=== PATIENT | female | born 1975 | race Caucasian/White ===

== ENCOUNTER 2017-09-11 18:04 | Emergency (ER) | payer OTHER, SELFPAY ==
[2017-09-11 18:05] VITALS: BP 169/106; PULSE 98; RESP 18; TEMP 36.9; O2SAT 100; BMI 32.0
[2017-09-11 19:13] LABS: Absolute Lymphocyte Count 1.74 X10^3/ul (0.83-4.51); Absolute Neutrophil Count 6.4 X10^3/uL (2.0-7.7); Basophil# 0.01 X10^3/uL; Basophil% 0.1 % (0-1); Differential Indicated SCAN CRITERIA MET; Eosinophil# 0.26 X10^3/uL; Eosinophils% 2.9 % (0-5); Hematocrit 23.2 % (37-47); Hemoglobin 6.5 g/dl (12.0-15.0); Lymphocyte # 1.74 X10^3/ul (4.0); Lymphocyte % 19.4 % (19-41); Mean Corpuscular Hgb 21.8 pg (27.0-32.0); Mean Corpuscular Volume 77.9 fL (81-99); Mean Platelet Vol. 10.4 fl (6.2-12.0); Monocyte# 0.57 X10^3/uL; Monocyte% 6.4 % (0-10); Neutrophil # 6.37 X10^3/uL (2.7-7.7); Neutrophil % 71.1 % (47-70); POSITIVE COUNT NO; POSITIVE DIFFERENTIAL NO; POSITIVE MORPHOLOGY YES; Platelet Count 390 K/mm3 (150-450); RBC Distribution Width CV 20.2 % (11.6-14.6); RBC Distribution Width SD 56.7 fl (35.1-43.9); Red Blood Count 2.98 M/mm3 (4.2-5.4)
[2017-09-11 19:37] VITALS: BP 148/93; PULSE 88; RESP 18; O2SAT 96
[2017-09-11 19:37] LABS: Differential Comment SCANNED
--- NOTE | 2017-09-11 19:45 | ED.RN ---
PT EDUCATED AND EXPLAINED ABOUT BLOOD TRANSFUSION. PT DECLINED TO HAVE BLOOD TRANSFUSION DONE. PT IS UNDERSTANDING OF RISKS AND BENEFITS OF BLOOD TRANSFUSION.
--- NOTE | 2017-09-11 19:49 | ED.VISSUMM ---
- ER Visit Summary Date of Service: 09/11/17 Chief Complaint: Low hemoglobin History of Present Illness: The patient is a 42 F who presents with low hemoglobin. It was checked as an outpatient was 6.1. She had heavy periods in July but now her bleeding has stopped. She was feeling fatigued and had some exertional dyspnea. Her OB called and had her come in today. Physical Examination: Vital signs reviewed. HEENT exam unremarkable. Heart is regular rate and rhythm with a 3/6 systolic murmur which is old. Lungs are clear to auscultation. Abdomen is soft and nontender. exam is deferred. Extremities reveal no edema. Skin exam normal. Neurologic exam normal. Test Results: Hemoglobin is 6.5 Emergency Department Course and Treatment: I initially ordered 1 unit of packed red blood cells. I spoke with Dr. Cameron on-call for Dr. Holland. They will follow-up with the patient tomorrow. The patient then declined to have the blood transfusion. I informed her the risks and benefits of this. She would rather take iron at home and I feel that this is reasonable. She has normal vitals and is not bleeding at this time. She will follow-up with her OB Treatment Plan: [] Disposition: Discharge Impression: Acute blood loss anemia This note was generated with [employer] dictation software. It may contain incorrect words, spelling, and punctuation that were not noted in review of the chart prior to signing ED Disposition - Plan for ED Patient: Chief Complaint: Abn Labs Referrals: Roma Sabillon MD [Primary Care Provider] -
--- NOTE | 2017-09-11 19:51 | ED.DEP ---
ED Disposition - Plan for ED Patient: Disposition: Home or Assisted Living Chief Complaint: Abn Labs Instructions: ED Anemia Type Not Specified Referrals: Roma Sabillon MD [Primary Care Provider] -
== END 2017-09-11 19:59 | disposition home or self-care (01) ==
PROVIDERS: Emergency Provider Emergency Medicine; Family Provider Internal Medicine; PCP Internal Medicine
DX: D62 Acute posthemorrhagic anemia (principal)
CPT/HCPCS: 85025; 86850; 86900; 86920; 99283

== ENCOUNTER 2017-09-19 12:53 | Day surgery (SDC) | payer OTHER, SELFPAY ==
[2017-09-18 10:40] LABS: Hematocrit 29.2 % (37-47); Hemoglobin 8.1 g/dl (12.0-15.0); Mean Corp Hgb Conc 27.7 g/gl (32-36); Mean Corpuscular Hgb 22.5 pg (27.0-32.0); Mean Corpuscular Volume 81.1 fL (81-99); Mean Platelet Vol. 11.7 fl (6.2-12.0); Platelet Count 360 K/mm3 (150-450); RBC Distribution Width CV 22.6 % (11.6-14.6); RBC Distribution Width SD 63.8 fl (35.1-43.9); White Blood Count 5.8 K/mm3 (4.4-11.0)
[2017-09-18 10:41] LABS: Scan Indicated on CBC? Y/N YES- FLAGS NOTED
[2017-09-19] VITALS (7 sets, daily range): BP systolic 112–134; BP diastolic 53–76; PULSE 75–87; RESP 16–18; TEMP 36.5–37.3; O2SAT 98–100; BMI 31.4
[2017-09-19 13:21] LABS: Internal QC Validated? YES +Cl - CLEAR BKGD; Pregnancy, Urine Negative Negative
[2017-09-19 13:27] LABS: Hematocrit 29.8 % (37-47); Hemoglobin 8.3 g/dl (12.0-15.0); Mean Corp Hgb Conc 27.9 g/gl (32-36); Mean Corpuscular Hgb 22.4 pg (27.0-32.0); Mean Corpuscular Volume 80.5 fL (81-99); Mean Platelet Vol. 10.1 fl (6.2-12.0); Platelet Count 367 K/mm3 (150-450); RBC Distribution Width CV 23.1 % (11.6-14.6); RBC Distribution Width SD 64.6 fl (35.1-43.9); White Blood Count 6.9 K/mm3 (4.4-11.0)
[2017-09-19 13:29] LABS: Scan Indicated on CBC? Y/N YES- FLAGS NOTED
[2017-09-19] MEDS: Acetaminophen 500 MG Tablet 1000 MG PO (13:31)
[2017-09-19] MEDS: Ketorolac 60 MG/2 ML Vial IM (14:04)
--- NOTE | 2017-09-19 15:20 | EMB_PTH ---
PATIENT: LEYDI OCHOA LOC: [facility] [place] U#:[id number] AGE/SX: 42/F ROOM: RE09/19/[address]: Dr. Prema Holland MD : 1975 BED: DIS: 09/19/2017 SPEC #: [id number] RECD: 09/20/17 09:08 STATUS: EFRAIN GAMBOALissy #: [id number] MAKEDA: 09/19/17 15:[address]: Prema Holland DEPT: SURGICAL PATHOLOGY RECD BY: Rafa Crews ENTERED: 09/20/17 11:14 SP TYPE: ENDOM BX/C ISAÍAS DR: Dr. Roma Sabillon MD Tissues: Endometrium, NOS Procedures: Surgery Specimen Level IV HEADER OPERATION: Hysteroscopy, visual D & C, Mirena IUD insertion PRE-OP DIAGNOSIS: Endometrial polyp, menorrhagia TISSUE SUBMITTED: Endometrial polyp MICROSCOPIC DIAGNOSIS Endometrial polyp: Secretory endometrium. Fragments of myometrium. SJ:dylan 09/23/17 MICROSCOPIC DESCRIPTION Slides are reviewed. GROSS DESCRIPTION Received in fixative is one container labeled with the patient's name and designated endometrial curettings. The specimen consists of multiple irregular fragments of briceño soft tissue that in aggregate measure 7.5 x 3 x 0.3 cm. The entire specimen is submitted in three cassettes. / MAUDE:dylan 09/20/17 TC:4 CPT: 01296
--- NOTE | 2017-09-19 16:06 | PCM.OPRPT ---
Report of Operation Date of Procedure: 09/19/17 Pre-Operative Diagnosis: menorrhagia, acute blood loss anemia, endometrial polyp Post-Operative Diagnosis: same Surgery/Procedure Performed:: hysteroscopy with visual dilation and curettage and polyp resection and Mirena insertion Description of Surgical Findings:: polypoid appearing material at uterine fundus, lush endometrium medical education coordinator: None Type of Anesthesia:: MAC/Supplemental/Local Anesthesiologist: Dorinda Velazquez Special Medications: none Specimen's removed: enodometrial curettings Drains: none Estimated Blood Loss (mL): 20cc Fluids Replaced: LR Description of Procedure: The patient was taken to the OR where she was prepped and draped in dorsal lithotomy position. The weighted speculum was placed in the vagina and the anterior lip of the cervix was grasped with a single-tooth tenaculum. A paracervical block was administered with [1% lidocaine with 1-100,000 epinephrine solution]. The cervix was dilated serially with Hegar dilators. The 6 mm Symphion hysteroscope was placed into the uterine cavity and the above findings were noted. Bilateral tubal ostia [were] identified. The hysteroscope was removed. The Symphion device was readied and inserted. The polypoid material in the anterior uterine fundus was removed with direct visualization. The device was then used to perform a visual D&C of the remainder of the endometrial cavity. The Mirena intrauterine device was inserted in the usual fashion and the strings were to 2 cm. The instruments were removed from the vagina. The tenaculum site was hemostatic. The vaginal sweep was completed. The specimen was retrieved from the suction canister and sent to pathology. All sponge and needle counts were correct. Vaginal sweep was performed by me. The patient was awakened and taken to the recovery room in stable condition. Hysteroscopic ins: 1000 cc cc normal saline Hysteroscopic outs: 500 cc cc Fluid deficit is 500 cc of normal saline. Grafts/Implants Used: none - Complications none - Admit VTE Documentation VTE Present on Admission: No VTE Pharm Prophylaxis ordered?: No
--- NOTE | 2017-09-19 16:21 | PCM.DC.D&C ---
Discharge Diet: No Restrictions Discharge Activity: Return to Normal Activity, May Shower, May Take a Tub Bath - in 2 weeks. May resume sexual activity in: 2 weeks Call your doctor if you observe: Fever of 101 or Higher, Using more than one pad per hour - for 2 hrs in a row, Uncontrolled pain Allergies/Adverse Reactions: Allergies No Known Allergies Allergy (Verified 09/18/17 08:14) Medications to take at Discharge Ferrous Sulfate [Iron] 325 mg PO DAILY 09/11/17 Mv-Min/Iron/Folic/Calcium/Vitk [Women's Daily Formula Tablet] 1 each PO DAILY 09/18/17 Primary Care Physician: Roma Sabillon MD [Primary Care Provider] - Test Results: Test results from this visit will be discussed in further detail at your follow-up appointment, if applicable. Please Follow Up With: Prema Holland MD - [phone]
== END 2017-09-19 17:22 | disposition home or self-care (01) ==
LOC: SDC 12:54 → AC 12:54
PROVIDERS: Family Provider Internal Medicine; PCP Internal Medicine; Visit Provider Obstetrics & Gynecology
PROC: 0UDB8ZZ Extraction of Endometrium, Via Natural or Artificial Opening Endoscopic (ICD-10-PCS; CPT 58558; principal; 2017-09-19 15:00)
DX: N84.0 Polyp of corpus uteri (principal); D62 Acute posthemorrhagic anemia; N92.0 Excessive and frequent menstruation with regular cycle; I10 Essential (primary) hypertension; Z79.899 Other long term (current) drug therapy
CPT/HCPCS: 58300; 58558; 36415; 81025; 85027; 86850; 86900; 88305; J7120; J2405

== ENCOUNTER 2018-07-31 08:35 | Day surgery (SDC) | payer OTHER, SELFPAY ==
--- NOTE | 2018-07-22 10:27 | HP.PCM_ITS ---
History and Physical Date of Admission: 07/31/18 Pre-Op History and Physical ? HPI: The patient is a 43 year old female presenting for pre-operative visit. She is scheduled for?LAVH, bilateral salpingectomy, for?uterine fibroids, fe def. anemia from chronic blood loss and menorrhagia on?07/31/18. ??Procedure discussed along with risks, benefits and complications. ?Other alternatives discussed for management. Consent form signed??Yes.? PAST?MEDICAL?HISTORY PAST MEDICAL HISTORY Diagnosis Date ? Ear problem, right ? ? ? HTN (hypertension) ? ? age 22 ? Pre-eclampsia ? ? Ivy ? ? PAST?SURGICAL?HISTORY PAST SURGICAL HISTORY Procedure Laterality Date ? EAR TUBES HX ? ? ? EXTRACTION ERUPTED TOOTH/EXR ? ? ? HYSTEROSCOPY, SURGICAL; WITH SAMPLI ? 09/19/2017 ? resection of polyps, D&C ? ? CURRENT?MEDICATIONS Current Outpatient Medications Medication Sig Dispense Refill ? tranexamic acid (LYSTEDA) 650 mg tablet Take 2 tablets by mouth three times daily as needed (heavy menstrual bleeding) for up to 5 days. 30 tablet 5 ? multivit with calcium,iron,min (WOMEN'S DAILY MULTIVITAMIN ORAL) Take by mouth. ? ? ? ferrous sulfate 325 mg (65 mg iron) tablet DAILY ? ? ? levonorgestrel (MIRENA) 20 mcg/24 hr (5 years) IUD 1 Each by INTRAUTERINE route as directed. (Patient not taking: Reported on 02/12/2018 ) ? ? ? No current facility-administered medications for this visit.? ? ALLERGIES:?Patient has no known allergies. ? PERSONAL HISTORY:? SOCIAL?HISTORY Social History ??Socioeconomic History ?Marital status: ?Spouse name: Not on file ?Number of children: Not on file ?Years of education: Not on file ?Highest education level: Not on file ??Social Needs ?Financial resource strain: Not on file ?Food insecurity - worry: Not on file ?Food insecurity - inability: Not on file ?Transportation needs - medical: Not on file ?Transportation needs - non-medical: Not on file ??Occupational History ?Occupation: teacher ?Comment: [employer] ?Occupation: teacher ?Employer: [employer] ??Tobacco Use ?Smoking status: Never Smoker ?Smokeless tobacco: Never Used ??Substance and Sexual Activity ?Alcohol use: No ?Drug use: No ?Sexual activity: Not Currently ??Other Topics ?Concerns: ?Not on file ??Social History Narrative ?Children- 3: 16, 14 and 13. ?Lost one in childbirth ? FAMILY HISTORY:? FAMILY?HISTORY FAMILY HISTORY Problem Relation Age of Onset ? Hypertension Mother ? ? Hypertension Maternal Grandmother ? ? Heart disease Maternal Grandmother ? ? Hypertension Paternal Grandmother ? ? Heart Failure Paternal Grandmother ? ? other (seizure disorder) Son ? ? REVIEW OF SYMPTOMS: GENERAL: denies fevers or chills ENDOCRINOLOGY: has not been on steroids Cardiology : denies palpitations or chest pain Respiratory: denies SOB or cough Hematology: denies history of prolonged bleeding or easy bruising or VTE Allergy: Denies history of personal or family history of allergy to anesthesia ? ? PHYSICAL EXAMINATION: ? VITALS:?Blood pressure 108/68, pulse 64, resp. rate 14, height 5' 8 (1.727 m), weight 213 lb (96.6 kg), last menstrual period 07/02/2018. ? GENERAL:??The patient is well nourished, well hydrated in no acute distress. ?, The patient is oriented to time, place, and person. NECK:?Supple. No lynphadenopathy, normal thyroid, no thyromegaly. LUNGS:?Clear to auscultation bilaterally. no wheezes, rhonchi or rales HEART:?Regular rate and rhythm, Normal heart sounds and No murmurs or gallops ? EMB 09/05/15 -benign endometrium with stromal breakdown ? Pelvic US 08/22/17: Report Summary: Overall impression: An enlarged and anteverted uterus with the measurements shown below. The endometrial echo measures 26 mm. The endometrial cavity shows an endometrial polyp. Multiple intramural fibroids are visualized The right ovary appears normal. The left ovary appears normal A left paraovarian cyst is notes. There is no free fluid in the cul de sac IMPRESSION: An enlarged uterus Multiple fibroids An endometrial polyp A paraovarian cyst. Recommendations / therapy: Clinical correlation. Indication: Abnormal Uterine Bleeding. History: Last menstrual period: 08/02/2017. 21th day of cycle. Gynecological Ultrasonography: Uterus: normal, anteverted. Size: Longitudinal 103 mm. Anterio- posterior 61 mm. Transverse?75 mm. Volume: 246.7 ml. Fibroids: Fibroid 1: Size: 45 mm x 36 mm x 39 mm. Type: anterior. Position: right lower uterine segment. Lateral. Fibroid 2: Size: 25 mm x 19 mm x 27 mm. Type: posterior. Position: mid-uterus. Fibroid 3: Size: 18 mm x 12 mm x 23 mm. Type: posterior. Position: mid-uterus. Endometrium: endometrium clearly visualized. Endometrium thickness total: 26.0 mm. Endometrial polyps: 27 mm x 14 mm x 22 mm. Right Ovary: normal. Visible. Morphology: normal morphology. Right Ovary size: 29 mm x 30 mm x 26 mm. Volume: 11.8 ml. Left Ovary: normal. Visible. Morphology: normal morphology. Left Ovary size: 29 mm x 21 mm x 17 mm. Volume: 5.4 ml. Comments: Paraovarian cysts- [id number] and [id number] Cul de Sac / Pouch of Agustin: no free fluid visible.? ? IMPRESSION:?Menorrhagia, intramural uterine fibroids, iron deficiency anemia due to chronic blood loss ? PLAN:???The risks/benefits/alternatives and personal involved for the planned?LAVH, bilateral salpingectomy, possible cystoscopy?were reviewed with the patient. Her questions were answered to her satisfaction and she desires to proceed. ?Consent was signed. ?I reviewed with her postop instructions and expectations. ?She would like to consider same day discharge home and requirements for this reviewed.? I have reviewed and updated past medical and surgical history, medications and allergies? this history and physical was completed in my office on 07/22/2018
[2018-07-31] VITALS (9 sets, daily range): BP systolic 96–141; BP diastolic 55–79; PULSE 66–92; RESP 18; TEMP 36.7–36.9; O2SAT 94–99; BMI 32.5
[2018-07-31 09:02] LABS: Internal QC Validated? YES +Cl - CLEAR BKGD
[2018-07-31 09:03] LABS: Pregnancy, Urine Negative Negative
[2018-07-31] MEDS: Lactated Ringers 1,000 ML 40 ML IV (09:22)
[2018-07-31] MEDS: Magnesium Sulfate 4gm/100mL 4 GM/100 ML IV.SOLN. IV (09:23)
[2018-07-31] MEDS: dexAMETHasone 10 MG/ML Vial 8 MG IV (09:24)
[2018-07-31] MEDS: Scopolamine 1mg/72hr Patch 1 PATCH TRANSDERM. (09:31)
[2018-07-31] MEDS: Acetaminophen 500 MG Tablet 1000 MG PO ×2 (09:34→17:10)
[2018-07-31] MEDS: Gabapentin 600 MG Tablet PO (09:34)
[2018-07-31] MEDS: Celecoxib 200 MG Capsule 400 MG PO (09:35)
[2018-07-31] MEDS: Phenazopyridine 95 MG Tablet 190 MG PO (09:36)
[2018-07-31 09:50] LABS: Bedside Glucose 106 mg/dL (70-110)
--- NOTE | 2018-07-31 10:00 | HYST_PTH ---
PATIENT: LEYDI OCHOA LOC: [facility] [place] U#:[id number] AGE/SX: 43/F ROOM: RE07/31/[address]: Dr. Prema Holland MD : 1975 BED: DIS: 07/31/2018 SPEC #: [id number] RECD: 07/31/18 16:07 STATUS: EFRAIN ARMANDO #: [id number] MAKEDA: 07/31/18 10:[address]: Prema Holland DEPT: SURGICAL PATHOLOGY RECD BY: Julio Reveles ENTERED: 08/01/18 08:57 SP TYPE: HYSTERECT OTHR DR: Dr. Roma Sabillon MD Tissues: Uterus, NOS Procedures: Surgery Specimen Level V HEADER OPERATION: ERAS, hysterectomy, lap-assisted vaginal, salpingectomy, cysto PRE-OP DIAGNOSIS: Menorrhagia, intramural uterine fibroids TISSUE SUBMITTED: Uterus, cervix, bilateral fallopian tubes MICROSCOPIC DIAGNOSIS Uterus, hysterectomy: Cervix - squamous metaplasia, nabothian cysts and mild chronic inflammation. Endometrium - transition endometrium. Myometrium - leiomyomas. Right fallopian tube - no pathologic change. Left fallopian tube with cystic dilatation - consistent with hydrosalpinx. AM:dylan 08/04/18 COMMENT Case has been reviewed in consultation with Dr. Byrd who concurs with the above diagnosis. IDC:SJ MICROSCOPIC DESCRIPTION Slides are reviewed. GROSS DESCRIPTION Received in fixative is one container labeled with the patient's name and designated uterus. The specimen consists of a uterus with attached cervix, attached right and left fallopian tubes. The uterus with cervix measures 10.5 x 10 x 5 cm and weighs 222 gm. The ectocervix is unremarkable. The cervical os is oval in contour. The endocervical canal measures 3.6 cm in length and is grossly unremarkable. The triangular endometrial cavity measures 3.8 x 3 cm. The velvety, reddish-briceño endometrium measures up to 0.2 cm in thickness. The myometrium measures 2 cm in average thickness and contains multiple rubbery nodules ranging in size from 0.7 to 4 cm in greatest dimension. The largest nodule has extensive calcific change. The right fallopian tube measures 6.6 cm in length and 0.8 cm in average diameter. The left fallopian tube measures 9 cm in length and varies in diameter from 0.5 cm to 4.0 cm. A smooth cyst measuring 9 x 4 x 2.5 cm is present and appears to be part of the left fallopian tube containing clear fluid. The external surface is smooth and without papillations. The external surface is inked. The external surface of the left fallopian tube is inked and the area of dilation contains clear watery, light briceño fluid consistent with hydrosalpinx. News Videotape Editor sections are submitted in 12 cassettes as follows: 1 - anterior cervix, 2 - posterior cervix, 3 & 4 - anterior uterine wall, 5 & 6 - posterior uterine wall, 79 - leiomyomas, 10 - right fallopian tube, 11 & 12 - left fallopian tube and cyst. / AM:dylan 08/01/18 TC:1 CPT: 47740
[2018-07-31] MEDS: Cefazolin 2 GM in 0.9% Normal Saline 100 ML IV (12:12)
[2018-07-31] MEDS: Bupivacaine Mpf 0.5% 30 ML VIAL (14:33)
--- NOTE | 2018-07-31 15:05 | OP.PCM_ITS ---
Report of Operation Date of Procedure: 07/31/18 Pre-Operative Diagnosis: Menorrhagia, history of chronic iron deficiency anemia from blood loss, intramural uterine fibroids Post-Operative Diagnosis: same Surgery/Procedure Performed:: Laparoscopic assisted vaginal hysterectomy with bilateral salpingectomy and cystoscopy Description of Surgical Findings:: Enlarged uterus. Multiple fibroids. One fibroid on the right internal cervical os level. Another fibroid in the uterine fundus. Large left paratubal cyst. Otherwise normal-appearing tubes and ovaries. No other significant intraperitoneal abnormalities loan inspector: Sera Carrillo loan inspector: Graciela Gill Type of Anesthesia:: General Anesthesiologist: Marisa Maki Special Medications: none Specimen's removed: Uterus, Cervix, bilateral tubes Drains: Buck removed in PACU Estimated Blood Loss (mL): 250 Fluids Replaced: 1200 cc LR Description of Procedure: The patient was taken to the operating room where she was prepped and draped in the dorsal lithotomy position. Her arms were tucked to the side and padded and her legs were placed in the yellowfin stirrups. Care was taken to ensure that she was placed in a neurologically safe and neutral position. A weighted speculum was placed in the vagina and the anterior lip of the cervix was grasped with a single-tooth tenaculum. The uterus sounded to 10 centimeters. The ZUMI uterine manipulator was placed and secured. The Buck catheter was placed to straight drain. Attention was turned to the abdominal portion of the case. Before skin incisions were made they were infiltrated with 0.5% Marcaine solution for local anesthetic. A 5 mm intraumbilical incision was made and while tenting the anterior abdominal wall up with towel clamps a 5 mm blade less trocar and sleeve were advanced directly into the peritoneal cavity. Peritoneal placement was confirmed with the laparoscope the pneumoperitoneum was created, and the underlying abdominal contents were intact. The patient was placed in Trendelenburg and the above findings were noted. Right and left lateral 5 mm trochars were placed under direct visualization without difficulty. The antimesenteric portion of the tube was clamped sealed and transected serially on both sides with the LigaSure device. The round ligaments were clamped sealed and transected and a window was made in the peritoneum. The utero-ovarian ligaments were then clamped, sealed and transected with the LigaSure device and the pedicles were hemostatic. The fibroid on the right distorted the anatomy slightly and we had to work around this and take the peritoneum off of it and then manipulated to be able to get the bladder flap down and access the uterine vessels. The bladder flap was dissected down with the LigaSure device and blunt dissection and the uterine arteries were then skeletonized. The uterine arteries were clamped, sealed and transected on both sides with the LigaSure device. At this point the pedicles were all examined and found to be hemostatic. Attention was turned to the vaginal portion of the case. 1% lidocaine with dilute epinephrine solution was used to infiltrate the anterior vaginal epithelium over the cervix. An incision was made from 3 to 9:00 across the anterior vaginal epithelium and the vaginal epithelium was dissected back with blunt sharp dissection. The anterior colpotomy incision was made. The posterior colpotomy incision was made with sharp dissection. The uterosacral ligaments were then clamped, transected and suture-ligated on both sides. Hemostasis was noted. The lower portion of the cardinal ligaments was then clamped, transected and suture-ligated. On the left side there is just a small amount of peritoneum that was left and this was clamped across, transected and suture-ligated. The uterus was then brought out through the vaginal incision and there was a small amount of peritoneum left on the patient's right side near where the fibroid was and this was clamped, transected and suture- ligated. The pedicles were all then examined and found to be hemostatic. A modified Salmeron suture was done with 2-0 PDS suture. This was performed after the posterior vaginal cuff was run with a 2-0 Vicryl suture to secure the peritoneum to the posterior vaginal cuff. The modified Salmeron suture was reefed across the posterior peritoneum through both uterosacral ligaments and then back out through the midline to be secured after the vaginal cuff was closed. The vaginal cuff was then closed in a horizontal fashion with interrupted 0 Vicryl [id number] sutures. Care was taken to secure the vagina to the uterosacral ligaments. Call suture was then cinched down. The Buck catheter was removed and a cystoscopy was performed. The bladder appeared normal and was intact. Both ureteral orifices were noted and both ureteral jets were seen. The cystoscope was removed and the Buck catheter was placed back to straight drain. A sponge stick was placed in the vagina to help place traction against the vaginal cuff. The laparoscope was reinserted into the abdomen and the pneumoperitoneum was re- created. The pedicles were reexamined and found to be hemostatic. The vaginal cuff was hemostatic. The right and left lateral ports were taken out and the sites were hemostatic. The pneumoperitoneum was released and even under low pressure there was no bleeding of any of the pedicles are vaginal cuff. The umbilical port was removed. The umbilical skin incisions were closed with Monocryl suture and skin glue by an FNA with me present in the operative suite. The vaginal instruments were removed by me and a vaginal sweep was completed by me. A rectal exam was performed and no sutures were palpated. The surgery was performed by me with assistance other than the portions dictated as above. There were no qualified residents available for this procedure. All sponge lap and needle counts were correct and the patient was transferred to the recovery room in stable condition. Grafts/Implants Used: None - Complications None - Admit VTE Documentation VTE Present on Admission: No VTE Mechan Device Prophylaxis: SCD's VTE Pharm Prophylaxis ordered?: No Reason prophylaxis not ordered:: Procedure Not Indicated
[2018-07-31] MEDS: Ketorolac 30 MG/ML Syringe IV (15:20)
[2018-07-31] MEDS: Ondansetron 4 MG/2 ML Vial IV (15:21)
--- NOTE | 2018-07-31 15:21 | DCINST_ITS ---
Discharge Diet: No Restrictions Discharge Activity: Return to Normal Activity, May Not Drive - while taking narcotic pain medications., May Shower, May Take a Tub Bath - in 4 weeks, no swimming or hot tubs for 6 weeks May shower in (days): 1 May resume sexual activity in: 6-8 weeks Lifting Restrictions: 15 lbs Call your doctor if your incision/area has: Continuous Slow Oozing, Sudden Increased Bleeding, Increased Pain/ Swelling, Increased Redness, Foul Smelling Discharge Call your doctor if you observe: Fever of 101 or Higher, Inability to urinate, Inability to have a bowel movement, Using more than one pad per hour Cleanse incision/area with: Soap & Water - your skin glue can get wet, wash with soap and water Allergies/Adverse Reactions: Allergies No Known Allergies Allergy (Verified 07/31/18 09:12) Medications to take at Discharge Mv-Min/Iron/Folic/Calcium/Vitk [Women's Daily Formula Tablet] 1 each PO DAILY 09/18/17 Docusate Sodium [Colace] 100 mg PO BID PRN PRN #20 capsule 07/31/18 Ibuprofen [Motrin] 800 mg PO TID PRN PRN #40 tablet 07/31/18 Ketorolac [Toradol] 10 mg PO Q6H 3 Days #12 tablet 07/31/18 Oxycodone [Oxyir] 5 mg PO Q6H PRN PRN 4 Days #10 tablet 07/31/18 The following prescriptions were given: Oxycodone [Oxyir] 5 mg PO Q6H PRN PRN 4 Days #10 tablet PRN Reason: Breakthrough Pain (>4/10) Docusate Sodium [Colace] 100 mg PO BID PRN PRN #20 capsule PRN Reason: Constipation Ibuprofen [Motrin] 800 mg PO TID PRN PRN #40 tablet PRN Reason: Pain Ketorolac [Toradol] 10 mg PO Q6H 3 Days #12 tablet Primary Care Physician: Roma Sabillon MD [Primary Care Provider] - Test Results: Test results from this visit will be discussed in further detail at your follow- up appointment, if applicable. Please Follow Up With: Prema Holland MD - [phone] When: 1-2 and 6 weeks or as needed
[2018-07-31 17:26] LABS: Hematocrit 37.1 % (37-47); Hemoglobin 11.7 g/dl (12.0-15.0); Mean Corp Hgb Conc 31.5 g/gl (32-36); Mean Corpuscular Hgb 28.5 pg (27.0-32.0); Mean Corpuscular Volume 90.5 fL (81-99); Mean Platelet Vol. 11.1 fl (6.2-12.0); Platelet Count 318 K/mm3 (150-450); RBC Distribution Width CV 14.2 % (11.6-14.6); White Blood Count 16.8 K/mm3 (4.4-11.0)
[2018-07-31 17:28] LABS: Scan Indicated on CBC? Y/N NO
--- NOTE | 2018-07-31 19:03 | PCM.PN.OB ---
Subjective: pain well controlled. Minimal vaginal bleeding. Not much of an appetite but drinking fluids and had some crackers. Hasn't voided, attempted and failed. Lightheaded a little w/ ambulation - Physical Exam General: Alert, Cooperative, No apparent distress Abdomen: Soft, Non-Distended, Tender - appropriately Skin: Incision - clean, dry and intact w/ skin glue Vital Signs Temp Pulse Resp BP Pulse Ox 98.5 F 80 18 109/57 L 96 07/31/18 18:55 07/31/18 18:55 07/31/18 18:55 07/31/18 18:55 07/31/18 18:55 Oxygen Flow Rate (L/min) 6 Oxygen Delivery Method Room Air Weight: 97.1 kg Body Mass Index (BMI) 32.5 Intake and Output for Last 24 Hours 07/29/18 07/30/18 07/31/18 23:59 23:59 23:59 Intake Total 1400 / 1400 Output Total 300 / 300 Balance 1100 / 1100 Laboratory Tests Past 24 Hrs 07/31/18 07/31/18 07/31/18 08:51 09:04 17:10 WBC 16.8 H RBC 4.10 L Hgb 11.7 L Hct 37.1 MCV 90.5 MCH 28.5 MCHC 31.5 L RDW 14.2 RDW Differential 47.0 H Plt Count 318 MPV 11.1 Urine Test Negative Blood Type O POSITIVE Antibody Screen NEGATIVE POC Glucose 07/31/18 09:17 POC Glucose 106 Medical Necessity - Tobacco Use Smoking Status: Never smoker Assessment/Plan POD #0 s/p LAVH, bilateral salpingectomy and cystoscopy. DOing well. Attempting to void. Would like to be d/[facility] home.
== END 2018-07-31 19:18 | disposition home or self-care (01) ==
LOC: SDC 08:42 → AC 08:42
PROVIDERS: Family Provider Internal Medicine; PCP Internal Medicine; Referring Provider Obstetrics & Gynecology; Visit Provider Obstetrics & Gynecology
PROC: 0UT9FZZ Resection of Uterus, Via Natural or Artificial Opening With Percutaneous Endoscopic Assistance (ICD-10-PCS; CPT 52000; principal; 2018-07-31 09:35)
DX: N87.9 Dysplasia of cervix uteri, unspecified (principal); N88.8 Other specified noninflammatory disorders of cervix uteri; N72 Inflammatory disease of cervix uteri; D25.9 Leiomyoma of uterus, unspecified; N83.8 Other noninflammatory disorders of ovary, fallopian tube and broad ligament; D50.0 Iron deficiency anemia secondary to blood loss (chronic); R42 Dizziness and giddiness
CPT/HCPCS: 52000; 58552; 36415; 81025; 82962; 85027; 86850; 86900; 88307; J7120; J2405